=== PATIENT | male | born 1985 | race Caucasian/White ===

== ENCOUNTER 2016-11-15 23:50 | Emergency (ER) | payer OTHER ==
[2016-11-16] MEDS ORDERED: KETOROLAC 30 MG/ML VIAL (J1885) As Ordered ONE (04:17)
--- NOTE | 2016-11-16 06:10 | REPUSA ---
CLINICAL HISTORY: Headaches. TECHNIQUE: Multiple axial brain CT scan sections were obtained from base to vertex without contrast a dministration. COMMENTS: The study shows normal configuration of sella turcica. There are no intra or extra-axial collections. There is no mass effect or midline shift. There is no evidence of hematoma formation. No hydrocephal us is present. No abnormal calcifications are noted. No significant abnormalities are seen either in the posterior fossa or supratentorial compartment. Mild chronic mucosal inflammatory changes of the ethmoid air cells. The remaining sinuses and mastoid air cells are patent. IMPRESSION: No evidence of acute intracranial pathology. Mild chronic mucosal inflammatory changes of the ethmoid air cells. Thank you for your kind referral of this patient.
--- NOTE | 2016-11-16 06:48 | EDDOCDS ---
Nurse's Notes [facility] Name: Tony Rivers Age: 31 yrs Sex: Male : 1985 Arrival Date: 11/15/2016 Time: 23:50 Bed Family 1 Private MD: Brooklynn VALE Diagnosis: Other headache syndrome Presentation: 11/15 23:58 Presenting complaint: Patient states: Very bad headache. This patient has no additional [facility] risk factors. Adult Sepsis Screening: The patient does not have new or worsening altered mentation. Patient's respiratory rate is less than 22. Systolic blood pressure is greater than 100. Patient has a qSOFA score of 0- Negative Sepsis Screen. Suicide/Homicide risk assessment- the patient denies having any suicidal and/or homicidal ideations and does not present with any other emotional, behavioral or mental health complaints. Status: The patient is an active duty shared services representative. Transition of care: patient was not received from another setting of care. 23:58 Acuity: FRANCISCO Level 3 [facility] 23:58 Method Of Arrival: Walkin/Carried/Asstd [facility] Triage Assessment: 11/16 00:02 Headache History: This headache is more severe than any previous headaches the patient [facility] has experienced. General: Appears uncomfortable, Behavior is appropriate for age, quiet. Pain: Location: left yarsani and left temporal area Pain currently is 8 out of 10 on a pain scale. Quality of pain is described as throbbing, piercing, Pain began 4 hours ago Also complains of nausea, photophobia. HIV screening NA for this visit Offered previously. Neurological: Reports headache. GI: Reports nausea. Historical: - Allergies: No known drug Allergies; - Home Meds: 1. Motrin 200 mg Oral 2 tab as needed (Last dose: 11/15/2016 20:30) 2. Tylenol 500 mg Oral 2 tabs as needed for Headache Disorder (Last dose: 11/15/2016 21:30) - PMHx: Headaches; - PSHx: right ankle; left shoulder; - Social history: Smoking status: Patient states was never smoker of tobacco. No barriers to communication noted, The patient speaks fluent Upper Sorbian, Speaks appropriately for age. - Family history: No immediate family members are acutely ill. - : The pt / caregiver states he / she is not on anticoagulants. Home medication list is obtained from the patient. - Exposure Risk Screening:: None identified. Screenin:19 Screening information is obtained from the patient. Fall risk: No risks identified. kmg1 Assistance ADL's: requires no assistance with activities of daily living. Abuse/DV Screen: The patient / caregiver reports he/she is: not in a situation that causes fear, pain or injury. Nutritional screening: No deficits noted. Advance Directives: There is no active DNR order. home support is adequate. Assessment: 02:17 General: Appears in no apparent distress, comfortable, Behavior is appropriate for age, kmg1 cooperative, pleasant. Pain: Location: left temporal area and left yarsani Pain currently is 8 out of 10 on a pain scale. Neurological: Level of Consciousness is awake, alert, Reports headache photophobia. 03:15 Reassessment: Patient appears in no apparent distress at this time. Resting quietly on kmg1 stretcher. Headache persists. 04:26 General: Appears in no apparent distress, comfortable, Behavior is appropriate for age, kmg1 cooperative, pleasant. Pain: Location: left temporal area and left yarsani Pain currently is 8 out of 10 on a pain scale. Quality of pain is described as aching, throbbing. Neurological: Level of Consciousness is awake, alert, Oriented to person, place, time, Reports headache. 05:30 Reassessment: Patient appears in no apparent distress at this time. Patient states kmg1 feeling better. Patient states symptoms have improved. 06:41 General: Appears in no apparent distress, comfortable. Pain: Pain currently is 0 out of kmg1 10 on a pain scale. Neurological: Level of Consciousness is awake, alert, Oriented to person, place, time. Respiratory: Airway is patent Respiratory effort is even, unlabored, Respiratory pattern is regular, symmetrical. Vital Signs: 11/15 23:52 BP 134 / 73; Pulse 76; Resp 18 S; Temp 96.8(O); Pulse Ox 97% on R/A; Weight 83.91 kg gr2 (R); Height 71 in. (180.34 cm) (R); Pain 08/04; 11/16 04:11 BP 120 / 66 LA Supine (auto/reg); Pulse 70 MON; Resp 18 S; Temp 97.4(O); Pulse Ox 94% cln on R/A; Pain 510; 06:23 BP 121 / 69; Pulse 61; Resp 18; Temp 97.9(O); Pulse Ox 98% on R/A; Pain 0/10; aruna 11/15 23:52 Body Mass Index 25.80 (83.91 kg, 180.34 cm) gr2 Vitals: 11/15 23:52 Log In Time: November 15, 2016 at 23:52. gr2 ED Course: 23:51 Patient visited by Fransisca Jones. gr2 23:51 Patient moved to Waiting gr2 23:52 [facility] is Private Physician. gr2 23:53 Patient visited by Fransisca Jones. gr2 23:53 Patient moved to Pre RCE gr2 23:59 Triage Initiated kmg1 11/16 00:05 Patient moved to Waiting kmg1 00:29 Patient moved to Pre RCE cz 01:03 Patient moved to 14 cz 01:34 Patient visited by Elena Luna PCA. aruna 02:17 Inserted saline lock: 18 gauge in left antecubital area. kmg1 02:19 Patient visited by Vicki Guzman RN. kmg1 02:19 The patient / caregiver is instructed regarding the plan of care and ED course. kmg1 02:19 No procedures done that require assistance. kmg1 03:31 [facility] Payment Agreement was scanned into [employer] and attached to record. slh 03:44 Patient visited by Elena Luna PCA. aruna 03:52 Manuel Nicolas DO is Attending Physician. cs11 03:52 Patient visited by Manuel Nicolas DO. cs11 04:12 Patient visited by Amanda Tobin PCA. cln 04:25 Carboxyhemoglobin Sent. kmg1 04:27 Patient visited by Vicki Guzman RN. kmg1 06:03 Patient visited by Elena Luna PCA. aruna 06:20 [facility] is Referral Physician. cs11 06:24 Patient visited by Elena Luna PCA. aruna 06:35 CT Head Without Contrast Returned. EDMS 06:41 Patient moved to Family Oct 06:41 Discontinued lock bleeding controlled, pressure dressing applied, No redness/swelling kmg1 at site. 06:47 Patient visited by Vicki Guzman RN. kmg1 Administered Medications: 04:09 CANCELLED (Other Intervention Used): ketorolac 60 mg IM once cs11 04:25 Drug: ketorolac 30 mg [ketorolac 30 mg/mL (1 mL) injection solution (1 mL)] Route: IVP; kmg1 Site: right antecubital; Order Results: Lab Order: Carboxyhemoglobin; SPEC'M 11/16/16 04:21 Test: CARBOXYHEMOGLOBIN; Value: 1.2; Range: 0.0-1.5; Units: %; Status: F Test Note: ; CARBOXYHEMOGLOBIN EXPECTED VALUES SUBURBAN NON-SMOKERS LESS THAN 1.5% SMOKERS 1.5-5.0% HEAVY SMOKERS 5.0-9.0% Radiology Order: CT Head Without Contrast Test: CT Head Without Contrast REASON FOR EXAMINATION: headache; ; CLINICAL HISTORY: Headaches.; TECHNIQUE: Multiple axial brain CT scan sections were obtained from base to vertex without contrast a; dministration.; COMMENTS:; The study shows normal configuration of sella turcica. There are no intra or extra-axial collections.; There is no mass effect or midline shift. There is no evidence of hematoma formation. No hydrocephal; us is present. No abnormal calcifications are noted.; No significant abnormalities are seen either in the posterior fossa or supratentorial compartment.; Mild chronic mucosal inflammatory changes of the ethmoid air cells.; The remaining sinuses and mastoid air cells are patent.; IMPRESSION:; No evidence of acute intracranial pathology.; Mild chronic mucosal inflammatory changes of the ethmoid air cells.; Thank you for your kind referral of this patient.; ; Outcome: 06:21 Discharge ordered by Provider. 11 06:41 Discharge Assessment: Patient awake, alert and oriented x 3. No cognitive and/or kmg1 functional deficits noted. Patient verbalized understanding of disposition instructions. Patient awake and alert. patient administered narcotics - no. The following High Risk Discharge criteria are identified: None. Discharged to home ambulatory, with significant other. Condition: stable. Discharge instructions given to patient, Instructed on discharge instructions, follow up and referral plans. Demonstrated understanding of instructions, Pt was receptive of discharge instructions/ teaching. No special radiology studies were completed. 06:47 Property sent home with patient. [facility] 06:47 Patient left the ED. [facility] Signatures: Dispatcher [employer] Vicki Leone, RN RN kmg1 Markell, Abbey Prescott, [facility] RN Kirit King, [facility] Luna, Elena, ARTIFICIAL TEETH INSPECTOR ARTIFICIAL TEETH INSPECTOR aruna Manuel Nicolas DO DO cs11 Fransisca Jones2 Asha Zaman, Amanda, ARTIFICIAL TEETH INSPECTOR ARTIFICIAL TEETH INSPECTOR cln MTDD
--- NOTE | 2016-11-16 06:48 | EDDOCDS ---
Physician Documentation [facility] Name: Tony Rivers Age: 31 yrs Sex: Male : 1985 Arrival Date: 11/15/2016 Time: 23:50 Bed Family 1 [facility] Disposition: 11/16/16 06:21 Discharged to Home/Self Care. Impression: Other headache syndrome. - Condition is Stable. - Medication Reconciliation, Local Pharmacy Hours form. - [facility]; When: Call to arrange an appointment; Reason: Recheck today's complaints. - Problem is chronic. - Symptoms have improved. Historical: - Allergies: No known drug Allergies; - Home Meds: 1. Motrin 200 mg Oral 2 tab as needed (Last dose: 11/15/2016 20:30) 2. Tylenol 500 mg Oral 2 tabs as needed for Headache Disorder (Last dose: 11/15/2016 21:30) - PMHx: Headaches; - PSHx: right ankle; left shoulder; - Social history: Smoking status: Patient states was never smoker of tobacco. No barriers to communication noted, The patient speaks fluent Telugu, Speaks appropriately for age. - Family history: No immediate family members are acutely ill. - : The pt / caregiver states he / she is not on anticoagulants. Home medication list is obtained from the patient. - Exposure Risk Screening:: None identified. Vital Signs: 11/15 23:52 BP 134 / 73; Pulse 76; Resp 18 S; Temp 96.8(O); Pulse Ox 97% on R/A; Weight 83.91 kg / gr2 184.99 lbs (R); Height 71 in. (180.34 cm) (R); Pain 10/10; 11/16 04:11 BP 120 / 66 LA Supine (auto/reg); Pulse 70 MON; Resp 18 S; Temp 97.4(O); Pulse Ox 94% cln on R/A; Pain 5/10; 06:23 BP 121 / 69; Pulse 61; Resp 18; Temp 97.9(O); Pulse Ox 98% on R/A; Pain 0/10; aruna 11/15 23:52 Body Mass Index 25.80 (83.91 kg, 180.34 cm) gr2 MDM: 03:31 REPLACED BY [facility] Payment Agreement was scanned into [employer] and attached to record. [facility] 03:55 Financial registration complete. [facility] 04:01 CT Head Without Contrast Ordered. EDMS 04:01 Carboxyhemoglobin Ordered. EDMS 04:10 ketorolac 30 mg IVP once ordered. cs11 05:36 Carboxyhemoglobin Reviewed. cs11 Administered Medications: 04:09 CANCELLED (Other Intervention Used): ketorolac 60 mg IM once cs11 04:25 Drug: ketorolac 30 mg [ketorolac 30 mg/mL (1 mL) injection solution (1 mL)] Route: IVP; km Site: right antecubital; Signatures: Dispatcher [employer] EDMS Vicki Guzman RN RN [facility] Manuel Nicolas DO DO cs Asha Zaman [facility] The chart was reviewed and I authenticate all verbal orders and agree with the evaluation and treatment provided.Corrections: (The following items were deleted from the chart) 04:09 04:00 ketorolac 60 mg IM once ordered. cs11 cs11 Attachments: 03:31 REPLACED BY [facility] Payment Agreement [facility] MTDD
--- NOTE | 2016-11-18 07:48 | EDDOCDS ---
Physician Documentation [facility] Name: Tony Rivers Age: 31 yrs Sex: Male : 1985 Arrival Date: 11/15/2016 Time: 23:50 Bed Family 1 [facility] Disposition: 11/16/16 06:21 Discharged to Home/Self Care. Impression: Other headache syndrome. - Condition is Stable. - Medication Reconciliation, Local Pharmacy Hours form. - [facility]; When: Call to arrange an appointment; Reason: Recheck today's complaints. - Problem is chronic. - Symptoms have improved. Historical: - Allergies: No known drug Allergies; - Home Meds: 1. Motrin 200 mg Oral 2 tab as needed (Last dose: 11/15/2016 20:30) 2. Tylenol 500 mg Oral 2 tabs as needed for Headache Disorder (Last dose: 11/15/2016 21:30) - PMHx: Headaches; - PSHx: right ankle; left shoulder; - Social history: Smoking status: Patient states was never smoker of tobacco. No barriers to communication noted, The patient speaks fluent Slovenian, Speaks appropriately for age. - Family history: No immediate family members are acutely ill. - : The pt / caregiver states he / she is not on anticoagulants. Home medication list is obtained from the patient. - Exposure Risk Screening:: None identified. Vital Signs: 11/15 23:52 BP 134 / 73; Pulse 76; Resp 18 S; Temp 96.8(O); Pulse Ox 97% on R/A; Weight 83.91 kg / gr2 184.99 lbs (R); Height 71 in. (180.34 cm) (R); Pain 10/10; 11/16 04:11 BP 120 / 66 LA Supine (auto/reg); Pulse 70 MON; Resp 18 S; Temp 97.4(O); Pulse Ox 94% cln on R/A; Pain 5/10; 06:23 BP 121 / 69; Pulse 61; Resp 18; Temp 97.9(O); Pulse Ox 98% on R/A; Pain 0/10; aruna 11/15 23:52 Body Mass Index 25.80 (83.91 kg, 180.34 cm) gr2 MDM: 03:31 [facility] Payment Agreement was scanned into [employer] and attached to record. [facility] 03:55 Financial registration complete. [facility] 04:01 CT Head Without Contrast Ordered. EDMS 04:01 Carboxyhemoglobin Ordered. EDMS 04:10 ketorolac 30 mg IVP once ordered. cs11 05:36 Carboxyhemoglobin Reviewed. cs 16:58 T-Sheet-- Draft Copy was scanned into [employer] and attached to record. klr Administered Medications: 04:09 CANCELLED (Other Intervention Used): ketorolac 60 mg IM once cs11 04:25 Drug: ketorolac 30 mg [ketorolac 30 mg/mL (1 mL) injection solution (1 mL)] Route: IVP; [facility] Site: right antecubital; Signatures: Dispatcher MedHost EDVicki Burden RN RN [facility] Manuel Nicolas DO DO cs11 Asha Zaman Cata Winslow The chart was reviewed and I authenticate all verbal orders and agree with the evaluation and treatment provided.Corrections: (The following items were deleted from the chart) 04:09 04:00 ketorolac 60 mg IM once ordered. cs11 cs11 Attachments: 03:31 [facility] Payment Agreement [facility] 16:58 T-Sheet-- Draft Copy klr Chart Complete MTDD
--- NOTE | 2016-11-18 07:48 | EDDOCDS ---
Nurse's Notes [facility] Name: Tony Rivers Age: 31 yrs Sex: Male : 1985 Arrival Date: 11/15/2016 Time: 23:50 Bed Family 1 Private MD: Brooklynn VALE Diagnosis: Other headache syndrome Presentation: 11/15 23:58 Presenting complaint: Patient states: Very bad headache. This patient has no additional [facility] risk factors. Adult Sepsis Screening: The patient does not have new or worsening altered mentation. Patient's respiratory rate is less than 22. Systolic blood pressure is greater than 100. Patient has a qSOFA score of 0- Negative Sepsis Screen. Suicide/Homicide risk assessment- the patient denies having any suicidal and/or homicidal ideations and does not present with any other emotional, behavioral or mental health complaints. Status: The patient is an active duty health services coordinator. Transition of care: patient was not received from another setting of care. 23:58 Acuity: FRANCISCO Level 3 [facility] 23:58 Method Of Arrival: Walkin/Carried/Asstd [facility] Triage Assessment: 11/16 00:02 Headache History: This headache is more severe than any previous headaches the patient [facility] has experienced. General: Appears uncomfortable, Behavior is appropriate for age, quiet. Pain: Location: left restorationism and left temporal area Pain currently is 8 out of 10 on a pain scale. Quality of pain is described as throbbing, piercing, Pain began 4 hours ago Also complains of nausea, photophobia. HIV screening NA for this visit Offered previously. Neurological: Reports headache. GI: Reports nausea. Historical: - Allergies: No known drug Allergies; - Home Meds: 1. Motrin 200 mg Oral 2 tab as needed (Last dose: 11/15/2016 20:30) 2. Tylenol 500 mg Oral 2 tabs as needed for Headache Disorder (Last dose: 11/15/2016 21:30) - PMHx: Headaches; - PSHx: right ankle; left shoulder; - Social history: Smoking status: Patient states was never smoker of tobacco. No barriers to communication noted, The patient speaks fluent Greenlandic, Speaks appropriately for age. - Family history: No immediate family members are acutely ill. - : The pt / caregiver states he / she is not on anticoagulants. Home medication list is obtained from the patient. - Exposure Risk Screening:: None identified. Screenin:19 Screening information is obtained from the patient. Fall risk: No risks identified. kmg1 Assistance ADL's: requires no assistance with activities of daily living. Abuse/DV Screen: The patient / caregiver reports he/she is: not in a situation that causes fear, pain or injury. Nutritional screening: No deficits noted. Advance Directives: There is no active DNR order. home support is adequate. Assessment: 02:17 General: Appears in no apparent distress, comfortable, Behavior is appropriate for age, kmg1 cooperative, pleasant. Pain: Location: left temporal area and left restorationism Pain currently is 8 out of 10 on a pain scale. Neurological: Level of Consciousness is awake, alert, Reports headache photophobia. 03:15 Reassessment: Patient appears in no apparent distress at this time. Resting quietly on kmg1 stretcher. Headache persists. 04:26 General: Appears in no apparent distress, comfortable, Behavior is appropriate for age, kmg1 cooperative, pleasant. Pain: Location: left temporal area and left restorationism Pain currently is 8 out of 10 on a pain scale. Quality of pain is described as aching, throbbing. Neurological: Level of Consciousness is awake, alert, Oriented to person, place, time, Reports headache. 05:30 Reassessment: Patient appears in no apparent distress at this time. Patient states kmg1 feeling better. Patient states symptoms have improved. 06:41 General: Appears in no apparent distress, comfortable. Pain: Pain currently is 0 out of kmg1 10 on a pain scale. Neurological: Level of Consciousness is awake, alert, Oriented to person, place, time. Respiratory: Airway is patent Respiratory effort is even, unlabored, Respiratory pattern is regular, symmetrical. Vital Signs: 11/15 23:52 BP 134 / 73; Pulse 76; Resp 18 S; Temp 96.8(O); Pulse Ox 97% on R/A; Weight 83.91 kg gr2 (R); Height 71 in. (180.34 cm) (R); Pain 08/04; 11/16 04:11 BP 120 / 66 LA Supine (auto/reg); Pulse 70 MON; Resp 18 S; Temp 97.4(O); Pulse Ox 94% cln on R/A; Pain 510; 06:23 BP 121 / 69; Pulse 61; Resp 18; Temp 97.9(O); Pulse Ox 98% on R/A; Pain 0/10; aruna 11/15 23:52 Body Mass Index 25.80 (83.91 kg, 180.34 cm) gr2 Vitals: 11/15 23:52 Log In Time: November 15, 2016 at 23:52. gr2 ED Course: 23:51 Patient visited by Fransisca Jones. gr2 23:51 Patient moved to Waiting gr2 23:52 [facility] is Private Physician. gr2 23:53 Patient visited by Fransisca Jones. gr2 23:53 Patient moved to Pre RCE gr2 23:59 Triage Initiated kmg1 11/16 00:05 Patient moved to Waiting kmg1 00:29 Patient moved to Pre RCE cz 01:03 Patient moved to 14 cz 01:34 Patient visited by Elena Luna PCA. aruna 02:17 Inserted saline lock: 18 gauge in left antecubital area. kmg1 02:19 Patient visited by Vicki Guzman RN. kmg1 02:19 The patient / caregiver is instructed regarding the plan of care and ED course. kmg1 02:19 No procedures done that require assistance. kmg1 03:31 [facility] Payment Agreement was scanned into [employer] and attached to record. slh 03:44 Patient visited by Elena Luna PCA. aruna 03:52 Manuel Nicolas DO is Attending Physician. cs11 03:52 Patient visited by Manuel Nicolas DO. cs11 04:12 Patient visited by Amanda Tobin PCA. cln 04:25 Carboxyhemoglobin Sent. kmg1 04:27 Patient visited by Vicki Guzman RN. kmg1 06:03 Patient visited by Elena Luna PCA. aruna 06:20 [facility] is Referral Physician. cs11 06:24 Patient visited by Elena Luna PCA. aruna 06:35 CT Head Without Contrast Returned. EDMS 06:41 Patient moved to Family 1 oct 06:41 Discontinued lock bleeding controlled, pressure dressing applied, No redness/swelling kmg1 at site. 06:47 Patient visited by Vicki Guzman RN. kmg1 16:58 T-Sheet-- Draft Copy was scanned into [employer] and attached to record. klr Administered Medications: 04:09 CANCELLED (Other Intervention Used): ketorolac 60 mg IM once cs11 04:25 Drug: ketorolac 30 mg [ketorolac 30 mg/mL (1 mL) injection solution (1 mL)] Route: IVP; kmg1 Site: right antecubital; Order Results: Lab Order: Carboxyhemoglobin; SPEC'M 11/16/16 04:21 Test: CARBOXYHEMOGLOBIN; Value: 1.2; Range: 0.0-1.5; Units: %; Status: F Test Note: ; CARBOXYHEMOGLOBIN EXPECTED VALUES SUBURBAN NON-SMOKERS LESS THAN 1.5% SMOKERS 1.5-5.0% HEAVY SMOKERS 5.0-9.0% Radiology Order: CT Head Without Contrast Test: CT Head Without Contrast REASON FOR EXAMINATION: headache; ; CLINICAL HISTORY: Headaches.; TECHNIQUE: Multiple axial brain CT scan sections were obtained from base to vertex without contrast a; dministration.; COMMENTS:; The study shows normal configuration of sella turcica. There are no intra or extra-axial collections.; There is no mass effect or midline shift. There is no evidence of hematoma formation. No hydrocephal; us is present. No abnormal calcifications are noted.; No significant abnormalities are seen either in the posterior fossa or supratentorial compartment.; Mild chronic mucosal inflammatory changes of the ethmoid air cells.; The remaining sinuses and mastoid air cells are patent.; IMPRESSION:; No evidence of acute intracranial pathology.; Mild chronic mucosal inflammatory changes of the ethmoid air cells.; Thank you for your kind referral of this patient.; ; Outcome: 06:21 Discharge ordered by Provider. cs11 06:41 Discharge Assessment: Patient awake, alert and oriented x 3. No cognitive and/or kmg1 functional deficits noted. Patient verbalized understanding of disposition instructions. Patient awake and alert. patient administered narcotics - no. The following High Risk Discharge criteria are identified: None. Discharged to home ambulatory, with significant other. Condition: stable. Discharge instructions given to patient, Instructed on discharge instructions, follow up and referral plans. Demonstrated understanding of instructions, Pt was receptive of discharge instructions/ teaching. No special radiology studies were completed. 06:47 Property sent home with patient. kmg1 06:47 Patient left the ED. [facility] Signatures: Dispatcher [employer] EDVicki Burden RN RN kmg1 Abbey Guillaume RN RN jan Zecher, Calvin, RN RN cz Ewald, Elena, ASSEMBLER CLIP ON SUNGLASSES ASSEMBLER CLIP ON SUNGLASSES aruna Manuel Nicolas, DO cs11 Fransisca Jones gr2 Asha Zaman, Amanda, ASSEMBLER CLIP ON SUNGLASSES ASSEMBLER CLIP ON SUNGLASSES Cata Winkler Chart Complete MTDD
--- NOTE | 2016-11-18 07:48 | EDDOCDS ---
Physician Documentation [facility] Name: Tony Rivers Age: 31 yrs Sex: Male : 1985 Arrival Date: 11/15/2016 Time: 23:50 Bed Family 1 Private [facility]position: 11/16/16 06:21 Discharged to Home/Self Care. Impression: Other headache syndrome. - Condition is Stable. - Medication Reconciliation, Local Pharmacy Hours form. - [facility]; When: Call to arrange an appointment; Reason: Recheck today's complaints. - Problem is chronic. - Symptoms have improved. Historical: - Allergies: No known drug Allergies; - Home Meds: 1. Motrin 200 mg Oral 2 tab as needed (Last dose: 11/15/2016 20:30) 2. Tylenol 500 mg Oral 2 tabs as needed for Headache Disorder (Last dose: 11/15/2016 21:30) - PMHx: Headaches; - PSHx: right ankle; left shoulder; - Social history: Smoking status: Patient states was never smoker of tobacco. No barriers to communication noted, The patient speaks fluent Turkmen, Speaks appropriately for age. - Family history: No immediate family members are acutely ill. - : The pt / caregiver states he / she is not on anticoagulants. Home medication list is obtained from the patient. - Exposure Risk Screening:: None identified. Vital Signs: 11/15 23:52 BP 134 / 73; Pulse 76; Resp 18 S; Temp 96.8(O); Pulse Ox 97% on R/A; Weight 83.91 kg / gr2 184.99 lbs (R); Height 71 in. (180.34 cm) (R); Pain 10/10; 11/16 04:11 BP 120 / 66 LA Supine (auto/reg); Pulse 70 MON; Resp 18 S; Temp 97.4(O); Pulse Ox 94% cln on R/A; Pain 5/10; 06:23 BP 121 / 69; Pulse 61; Resp 18; Temp 97.9(O); Pulse Ox 98% on R/A; Pain 0/10; aruna 11/15 23:52 Body Mass Index 25.80 (83.91 kg, 180.34 cm) gr2 MDM: 03:31 [facility] Payment Agreement was scanned into Wami and attached to record. [facility] 03:55 Financial registration complete. [facility] 04:01 CT Head Without Contrast Ordered. EDMS 04:01 Carboxyhemoglobin Ordered. EDMS 04:10 ketorolac 30 mg IVP once ordered. cs11 05:36 Carboxyhemoglobin Reviewed. cs 16:58 T-Sheet-- Draft Copy was scanned into Wami and attached to record. klr Administered Medications: 04:09 CANCELLED (Other Intervention Used): ketorolac 60 mg IM once cs11 04:25 Drug: ketorolac 30 mg [ketorolac 30 mg/mL (1 mL) injection solution (1 mL)] Route: IVP; [facility] Site: right antecubital; Signatures: Dispatcher [employer] EDVicki Burden RN RN [facility] Manuel Nicolas DO DO cs11 Asha Zaman Cata Winslow The chart was reviewed and I authenticate all verbal orders and agree with the evaluation and treatment provided.Corrections: (The following items were deleted from the chart) 04:09 04:00 ketorolac 60 mg IM once ordered. cs11 cs11 Attachments: 03:31 [facility] Payment Agreement [facility] 16:58 T-Sheet-- Draft Copy klr Chart Complete MTDD
== END 2016-11-16 06:47 | disposition home or self-care (01) ==
LOC: M ED 23:50
DX: R51 Headache (principal); F17.200 Nicotine dependence, unspecified, uncomplicated
CPT/HCPCS: 70450; 82375; 96374; 99284; J1885